=== PATIENT | male | born 1995 | race Caucasian/White ===

== ENCOUNTER → 2016-08-13 | Day surgery (SDC) | payer MEDICAID, SELFPAY ==
[~2016-08-13] MED LIST: Bacitracin Oint 1 GM U/D Packet ONE; Bupivacaine 0.5% 50 ML MDV ONE; Diphtheria,Pertussis(Acell),Tetanus Vaccine 0.5 ML SDV IM ONE; Ketorolac 60 MG/2 ML SDV ONE; Lactated Ringers 1,000 ML ONE; Lidocaine 1% with EPINEPHrine 1:100,000 50 ML MDV INJECT ONE; Lidocaine 1% with EPINEPHrine 1:100,000 50 ML MDV ONE; Midazolam 1 MG/ML 2 ML SDV ONE; Propofol 200 MG/20 ML SDV ONE; Sodium Chloride 0.9% 10 ML Syringe FLUSH PRN; ceFAZolin 2 GM in Premix Bag 1 BAG IV ONE; fentaNYL 100 MCG/2 ML SDV ONE
[2016-08-13 12:26] VITALS: BP 145/70
--- NOTE | 2016-08-13 14:25 | EDM.PDOC ---
ED HPI Skin/Rash - General Chief Complaint: Laceration Stated Complaint: HURT RT ARM/WRIST Time Seen by Provider: 08/13/16 14:10 Source: Reports: Patient History Limitations: Reports: No limitations - History of Present Illness INITIAL COMMENTS - FREE TEXT/NARRATIVE: alert and oriented 21 year old male, states, "I put my arm through a window and pulled out some glass from it". Nas denies uncontrolled bleeding of right forearm laceration. He denies loss of sensation, numbness or tingling. He reports removing two pieces of glass from forearm laceration with small multiple superficial lacerations to the right hand. Last food intake yesterday. Sips of mountain dew today. No past history of anesthesia. Symptom Onset Date: 08/13/16 Symptom Onset Time: 10:30 Timing: Reports: still present Location, Skin: Reports: upper extremity, right Quality: Reports: Ache, Dull Severity: mild Associated symptoms: Reports: denies other symptoms - Related Data Allergies Allergy/AdvReac Type Severity Reaction Status Date / Time *unknown metal Allergy Rash Uncoded 08/13/16 13:03 Home Meds: Ambulatory Orders Medication Instructions Recorded Confirmed NK [No Known Home Meds] 09/14/14 08/13/16 Past Medical History - Past Health History Medical/Surgical History: Denies Medical/Surgical History Cardiovascular History: Reports: None Other Gastrointestinal History: occasional constipation Hematologic History: Reports: None Immunologic History: Reports: None Dermatologic History: Reports: None - Infectious Disease History Infectious Disease History: Reports: None, Chicken pox Social & Family History - Family History Family Medical History: Noncontributory - Tobacco Use Smoking Status *Q: Current Every Day Smoker Years of Tobacco use: 4 Packs/Tins Daily: 0.5 Used Tobacco, but Quit: No Second Hand Smoke Exposure: Yes - Caffeine Use Caffeine Use: Reports: Coffee, Soda - Alcohol Use Days Per Week of Alcohol Use: 0 - Recreational Drug Use Recreational Drug Use: No Recreational Drug Type: Reports: Marijuana/Hashish Recreational Drug Use Frequency: Weekly ED ROS GENERAL - Review of Systems Review Of Systems: See Below Constitutional: Reports: no symptoms Cardiovascular: Reports: No symptoms Endocrine: Reports: no symptoms Musculoskeletal: Reports: no symptoms Skin: Reports: wound Neurological: Reports: No Symptoms Hematologic/Lymphatic: Reports: no symptoms Free text/narrative/comment: Laceration to right forearm ED EXAM, SKIN/RASH Exam: See Below Text/Narrative:: U-shaped laceration to right forearm with flap, 3.5 to 4cm in total length. Bleeding controlled. Multiple small lacerations to right fingers, bleeding controlled. CMS intact, full sensation. Exam Limited By: No limitations General Appearance: alert, WD/WN, no apparent distress Eye Exam: bilateral eye: PERRL Head: atraumatic Neck: normal inspection Respiratory/Chest: no respiratory distress, lungs clear, normal breath sounds, no accessory muscle use, chest non-tender Cardiovascular: normal peripheral pulses, regular rate, rhythm, no edema, no gallop, no murmur, no rub Peripheral Pulses: 2+: brachial (L), brachial (R), radial (L), radial (R) Extremities: normal range of motion, normal capillary refill Neurological: alert, oriented, CN II-XII intact, normal cognition, normal reflexes, no motor/sensory deficits Psychiatric: normal affect, normal mood Skin: Warm, Dry, Wound/incision, Other Location, Skin: upper extremity, right Characteristics: other Comments: U-shaped laceration as described to right forearm, bleeding controlled at this time, foreign bodies noted. Dr. Banegas in to evaluate patient and assume care. Course - Vital Signs Text/Narrative:: X-ray completed, foreign body identified to area of laceration in close proximity to bone. Dr. Banegas notified, images reviewed and patient prepared for removal of foreign bodies to right forearm. NSL inserted, Ancef 2 gram IV Anesthesia in to speak with patient tDap administered. Last Recorded V/S: Last Vital Signs Temp 37.6 C 08/13/16 13:01 Pulse 82 08/13/16 13:01 Resp 16 08/13/16 13:01 BP 145/70 H 08/13/16 13:01 Pulse Ox 95 08/13/16 13:01 - Orders/Labs/Meds Orders: Active Orders 24 hr Category Date Time Status Peripheral IV Care [RC] . DIRECTED Care 08/13/16 14:52 Active Vaccines to be Administered [RC] PER UNIT ROUTINE Care 08/13/16 14:09 Active Fluoro Up To 1Hr [CR] Stat Exams 08/13/16 14:59 Ordered Forearm 2V Rt [CR] Stat Exams 08/13/16 14:18 Taken Sodium Chloride 0.9% [Saline Flush] Med 08/13/16 14:51 Active 10 ml FLUSH ASDIRECTED PRN Peripheral IV Insertion Adult [OM.PC] Routine Oth 08/13/16 14:51 Ordered Medication Orders Sodium Chloride (Saline Flush) 10 ml FLUSH ASDIRECTED PRN PRN Reason: Keep Vein Open Meds: Medications Generic Name Dose Route Start Last Admin Trade Name Freq PRN Reason Stop Dose Admin Sodium Chloride 10 ml 08/13/16 14:51 Saline Flush FLUSH ASDIRECTED PRN Keep Vein Open Discontinued Medications Generic Name Dose Route Start Last Admin Trade Name Freq PRN Reason Stop Dose Admin Bupivacaine HCl Confirm 08/13/16 15:10 Marcaine 0.5% Administered 08/13/16 15:11 Dose 50 ml .ROUTE .STK-MED ONE Diphtheria/Tetanus/Acell Pertussis 0.5 ml 08/13/16 14:09 08/13/16 14:40 Adacel IM 08/13/16 14:10 0.5 ml .ONCE ONE Administration Fentanyl Confirm 08/13/16 14:50 Sublimaze Administered 08/13/16 14:51 Dose 100 mcg .ROUTE .STK-MED ONE Cefazolin Sodium/Dextrose 2 gm 50 mls @ 100 mls/hr 08/13/16 14:50 08/13/16 15 :08 / Premix IV 08/13/16 15:19 100 mls/hr ONETIME ONE Administration Lidocaine/Epinephrine 20 ml 08/13/16 14:20 Xylocaine 1% With Epinephrine 1:100,000 INJECT 08/13/16 14:21 NOW ONE Lidocaine/Epinephrine Confirm 08/13/16 15:10 Xylocaine 1% With Epinephrine 1:100,000 Administered 08/13/16 15:11 Dose 50 ml .ROUTE .STK-MED ONE Midazolam HCl Confirm 08/13/16 14:50 Versed 1 Mg/Ml Administered 08/13/16 14:51 Dose 2 mg .ROUTE .STK-MED ONE Propofol Confirm 08/13/16 14:50 Diprivan 20 Ml Administered 08/13/16 14:51 Dose 200 mg .ROUTE .STK-MED ONE Departure - Departure Time of Disposition: 15:15 (To OR for removal of foreign body ) Disposition: Admitted As Inpatient 67 Condition: good Clinical Impression: Foreign body - My Orders Last 24 Hours: My Active Orders 08/13/16 14:09 Vaccines to be Administered [RC] PER UNIT ROUTINE 08/13/16 14:18 Forearm 2V Rt [CR] Stat 08/13/16 14:51 Sodium Chloride 0.9% [Saline Flush] 10 ml FLUSH ASDIRECTED PRN Peripheral IV Insertion Adult [OM.PC] Routine 08/13/16 14:52 Peripheral IV Care [RC] . DIRECTED - Assessment/Plan Last 24 Hours: My Active Orders 08/13/16 14:09 Vaccines to be Administered [RC] PER UNIT ROUTINE 08/13/16 14:18 Forearm 2V Rt [CR] Stat 08/13/16 14:51 Sodium Chloride 0.9% [Saline Flush] 10 ml FLUSH ASDIRECTED PRN Peripheral IV Insertion Adult [OM.PC] Routine 08/13/16 14:52 Peripheral IV Care [RC] . DIRECTED
--- NOTE | 2016-08-13 20:46 | CONS ---
DATE OF SERVICE: 08/13/2016 REFERRING PHYSICIAN: Albert Napoles MD CONSULTING PHYSICIAN: Tomas Banegas MD REASON FOR CONSULTATION: Evaluation of right arm. HISTORY OF PRESENT ILLNESS: A 21-year-old male, who punched through a glass window in the last couple hours. He presents with pain in his right arm, consistent with punching through. This is obviously a new problem for him. He is not up-to-date on his tetanus shot. PAST MEDICAL HISTORY: None. PAST SURGICAL HISTORY: None. SOCIAL HISTORY: Does smoke. FAMILY HISTORY: Noncontributory. REVIEW OF SYSTEMS: GENERAL: The patient is appropriate for his condition. HEENT: No symptoms. NECK: No symptoms. CARDIOVASCULAR: No history of myocardial infarction. RESPIRATORY: No history of asthma or shortness of breath. GASTROINTESTINAL: No symptoms. GENITOURINARY: No symptoms. NEUROLOGICAL: No symptoms. The remainder review of systems reviewed and is negative. PHYSICAL EXAMINATION: VITAL SIGNS: Stable. HEENT: Pupils equal, round, and reactive to light. NECK: Supple, and nontender. CARDIOVASCULAR: Regular rhythm and rate. RESPIRATORY: Lungs clear to consultation bilaterally. ABDOMEN: Bowel sounds positive. EXTREMITIES: Laceration, right arm, consistent with the history of present illness. NEUROLOGICAL: Alert and oriented x3. PSYCH: No gross depression. IMAGING DATA: I did review multiple glass fragments in the right forearm. ASSESSMENT: Glass fragments, right forearm. PLAN: The patient will have to be taken to the operating room to remove these multiple fragments. This will be intraoperative with MAC anesthesia using fluoroscopy. Risks, benefits, alternatives, and limitations, including, but not limited to infection, bleeding, nerve, musculoskeletal injury and other risks listed here were explained to the patient and his family and they understand and wished to proceed. Tomas Banegas MD /[id number]
--- NOTE | 2016-08-15 07:18 | OR ---
DATE OF PROCEDURE: 08/13/2016 PROCEDURE: 1. Exploration of traumatic laceration and removal of foreign body, right arm (). 2. Repair of complex flap laceration, full thickness including the muscle down to the ulnar bone ([id number]), total length of lacerations 7.2 cm (2 separate lacerations in proximity to each other, essentially forming a V pattern). COMPLICATIONS: None. 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 ANESTHESIA: MAC/local. INDICATIONS: A 21-year-old male, reportedly had a penetrating wound of his right arm. It was reported was glass and/or metal, but most consistent story with glass penetration. RISKS: Risks, benefits, alternatives, and limitations, including, but not limited to infection, bleeding, injury to structures such as nerves and arteries, which can result in deformities of the ulnar or median nerve, anatomical and sensory distribution. The patient understands these risks and wished to proceed. PROCEDURE IN DETAIL: The patient was placed in supine position. The right arm was prepped and draped. The wound was explored. This was noted to be full thickness and the laceration of the muscle had occurred down to the bone itself. This was thoroughly irrigated initially and then multiple times. Also prior to this initial exploration lidocaine mixed with epinephrine was used to anesthetize the skin. Over the next 20 minutes using intraoperative fluoroscopy, foreign material was removed. It was consistent with glass. This was a total of 8 pieces. No other pieces were noted after removal of these. The wound itself was noted to be as described before full-thickness laceration down to bone. It did not appear to injury or it did not show any evidence of tissue ischemia. The superior laceration was repaired first. The muscle bed was approximated again with 3-0 Vicryl over the bone itself. Of note, a piece of iodoform gauze was placed within this. After this, approximation with 3 layers of 3-0 Vicryl, a layer of 3-0 running Prolene was used to close the skin. The more distal laceration was then addressed next. This was also noted to be full thickness and was again thoroughly irrigated. The wound was again irrigated and then closed also in 3 layers of 3-0 Vicryl interrupted sutures with interrupted/running 3-0 Prolene for the skin. More local was applied. Dressings were applied. The patient tolerated the procedure well. Tomas Banegas MD /[id number]
--- NOTE | 2016-08-15 09:59 | CR ---
Multiple foreign bodies which are in the medial, anterior soft tissues of the distal forearm. No fra cture.
== END ==
LOC: JP.ED 12:13 → JP.SDS 15:21
PROVIDERS: ATTEND Surgery
DX: S51.821A Laceration with foreign body of right forearm, initial encounter (principal); W25.XXXA Contact with sharp glass, initial encounter; W45.8XXA Other foreign body or object entering through skin, initial encounter; W22.8XXA Striking against or struck by other objects, initial encounter; F17.200 Nicotine dependence, unspecified, uncomplicated; Z23 Encounter for immunization
CPT/HCPCS: 12032; 73090; 76000; 90471; 90715; 96365; 99284; J0690; J1885; J2250; J2704; J3010; J7120

== ENCOUNTER 2016-10-29 10:40 | Emergency (ER) | payer MEDICAID ==
[2016-10-29 11:05] VITALS: BP 137/77
[2016-10-29] MEDS ORDERED: Acetaminophen/HYDROcodone 325-5 MG Tab PO ONE (11:17)
--- NOTE | 2016-10-29 11:21 | EDM.PDOC ---
ED HPI GENERAL MEDICAL PROBLEM - General Chief Complaint: Lower Extremity Injury/Pain Stated Complaint: HURT LT ANKLE/FOOT Time Seen by Provider: 10/29/16 11:15 Source of Information: Reports: Patient History Limitations: Reports: No Limitations - History of Present Illness INITIAL COMMENTS - FREE TEXT/NARRATIVE: Nas is an otherwise healthy 21 year old male who presents to the ED today with his friend for evaluation of left ankle and foot pain after twisting both in soft sand while doing wheelie on his 4 hunt last night. Taking Ibuprofen and Tylenol for pain with minimal relief, pain with weight bearing. Denies any other injuries. - Related Data Allergies Allergy/AdvReac Type Severity Reaction Status Date / Time *unknown metal Allergy Rash Uncoded 08/13/16 13:03 Home Meds: Home Meds NK [No Known Home Meds] 09/14/14 [History] Past Medical History - Past Health History Medical/Surgical History: Denies Medical/Surgical History Cardiovascular History: Reports: None Other Gastrointestinal History: occasional constipation Hematologic History: Reports: None Immunologic History: Reports: None Dermatologic History: Reports: None - Infectious Disease History Infectious Disease History: Reports: None, Chicken Pox Social & Family History - Family History Family Medical History: Noncontributory - Tobacco Use Smoking Status *Q: Current Every Day Smoker Years of Tobacco use: 6 Packs/Tins Daily: 1 Used Tobacco, but Quit: No Second Hand Smoke Exposure: Yes - Caffeine Use Caffeine Use: Reports: Coffee, Soda - Alcohol Use Days Per Week of Alcohol Use: 0 - Recreational Drug Use Recreational Drug Use: No Recreational Drug Type: Reports: Marijuana/Hashish Recreational Drug Use Frequency: Weekly Review of Systems - Review of Systems Review Of Systems: ROS reveals no pertinent complaints other than HPI. ED EXAM, GENERAL - Physical Exam Exam: See Below Exam Limited By: No Limitations General Appearance: Alert, WD/WN, No Apparent Distress Respiratory/Chest: No Respiratory Distress Cardiovascular: Regular Rate, Rhythm Back Exam: Normal Inspection Extremities: Other (left ankle and foot swollen, distal dorsal swelling along 3- 5 metatarsal region. Pedal pulses intact, sensation intact, tender to touch. Capillary refill intact) Neurological: Alert, Oriented, CN II-XII Intact Psychiatric: Normal Affect, Normal Mood Skin Exam: Warm, Dry, Intact, Other (abrasion to left medial malleolar region) Lymphatic: No Adenopathy Course - Vital Signs Text/Narrative:: Nas is an otherwise healthy 21 year old male who present to the ED today with c/o left foot/ankle swelling and pain. Please refer to HPI and focused exam. Concern for sprain/contusion/fracture. X-rays obtained, findings appear to be old ? lucency in distal fibula. Subtle area of density in navicular bone that does not cross border. I did ask radiology to read both films (patient does reports hold ankle injury), radiology read read ankle as negative, possible navicular fracture. Discussed findings with patient, he was placed in gerson wrap and boot. Crutch teaching for non-weight bearing. Ibuprofen, rest, ice, elevate. Oxycodone for severe pain (no opioid abuse on [place] [employer]). Request made for f/u with Dr. Chase orthopedics in one week. Patient did mention hives after taking tylenol last night, will avoid this for now. Last Recorded V/S: Last Vital Signs Temp 36.8 C 10/29/16 11:13 Pulse 100 10/29/16 11:13 Resp 14 10/29/16 11:13 BP 137/77 10/29/16 11:13 Pulse Ox 94 L 10/29/16 11:13 - Orders/Labs/Meds Orders: Active Orders 24 hr Category Date Time Status Ankle Min 3V Lt [CR] Stat Exams 10/29/16 11:18 Taken Foot Comp Min 3V Lt [CR] Stat Exams 10/29/16 11:17 Taken Meds: Medications Discontinued Medications Generic Name Dose Route Start Last Admin Trade Name Freq PRN Reason Stop Dose Admin Hydrocodone Bitart/Acetaminophen 2 tab 10/29/16 11:17 [place] 325-5 Mg PO 10/29/16 11:18 ONETIME ONE Oxycodone HCl 10 mg 10/29/16 11:35 10/29/16 11:43 Oxycodone PO 10/29/16 11:36 10 mg ONETIME ONE Administration Departure - Departure Time of Disposition: 12:45 Disposition: Home, Self-Care 01 Condition: Good Clinical Impression: Navicular fracture, foot Qualifiers: Encounter type: initial encounter Fracture type: closed Fracture alignment: nondisplaced Laterality: left Qualified Code(s): S92.255A - Nondisplaced fracture of navicular [scaphoid] of left foot, initial encounter for closed fracture - Discharge Information Instructions: Tarsal Navicular Fracture, Crutch Use, [id number] Referrals: PCP,None [Primary Care Provider] - Forms: ED Department Discharge Additional Instructions: Keep foot elevated, ice with boot off frequently. Ibuprofen 600 mg every 6 hours. Oxycodone for severe pain Use crutches for non-weight bearing Dr. [facility] clinic will call to schedule follow up appt. - My Orders Last 24 Hours: My Active Orders 10/29/16 11:17 Foot Comp Min 3V Lt [CR] Stat 10/29/16 11:18 Ankle Min 3V Lt [CR] Stat - Assessment/Plan Last 24 Hours: My Active Orders 10/29/16 11:17 Foot Comp Min 3V Lt [CR] Stat 10/29/16 11:18 Ankle Min 3V Lt [CR] Stat
[2016-10-29] MEDS ORDERED: oxyCODONE 5 MG Tab PO ONE (11:35)
== END 2016-10-29 12:39 | disposition home or self-care (01) ==
LOC: JP.ED 10:40
DX: S92.255A Nondisplaced fracture of navicular [scaphoid] of left foot, initial encounter for closed fracture (principal); F17.210 Nicotine dependence, cigarettes, uncomplicated; W18.40XA Slipping, tripping and stumbling without falling, unspecified, initial encounter
CPT/HCPCS: 73610; 73630; 99284; A9270

== ENCOUNTER 2018-06-20 12:43 | Emergency (ER) | payer MEDICAID ==
[2018-06-20 13:06] VITALS: BP 154/86
[2018-06-20] MEDS ORDERED: Albuterol/Ipratropium 3.0-0.5 MG/3 ML Neb Soln NEB ONE (13:11)
--- NOTE | 2018-06-20 13:16 | EDM.PDOC ---
ED HPI GENERAL MEDICAL PROBLEM - General Chief Complaint: Respiratory Problem Stated Complaint: COUGH,CHEST DISCOMFORT,SOB Time Seen by Provider: 06/20/18 13:00 Source of Information: Reports: Patient History Limitations: Reports: No Limitations - History of Present Illness INITIAL COMMENTS - FREE TEXT/NARRATIVE: 23-year-old male with a cough for the last 2 days, pain with breathing and today feels very short of breath with a persistent pressure in the center of his chest. No fever or chills. He does not believe he has asthma. No abdominal pain, sore throat and ear pain or rhinitis. Onset: Gradual Duration: Day(s): (2-3 days) Improves with: Reports: None Worsens with: Reports: Breathing, Other (Coughing is painful) Associated Symptoms: Reports: Chest Pain, Cough, Shortness of Breath. Denies: Fever/Chills, Loss of Appetite, Nausea/Vomiting Chest Pain Score (Numeric/FACES): 5 - Related Data Allergies Allergy/AdvReac Type Severity Reaction Status Date / Time ibuprofen Allergy Hives Verified 06/20/18 13:00 *unknown metal Allergy Rash Uncoded 08/13/16 13:03 Home Meds: Home Meds NK [No Known Home Meds] 09/14/14 [History] Past Medical History - Past Health History Medical/Surgical History: Denies Medical/Surgical History Cardiovascular History: Reports: None Other Gastrointestinal History: occasional constipation Hematologic History: Reports: None Immunologic History: Reports: None Dermatologic History: Reports: None - Infectious Disease History Infectious Disease History: Reports: None, Chicken Pox - Past Surgical History Musculoskeletal Surgical History: Reports: Other (See Below) Other Musculoskeletal Surgeries/Procedures:: surgery on arm for glass removal. Social & Family History - Family History Family Medical History: Noncontributory - Tobacco Use Smoking Status *Q: Light Tobacco Smoker Years of Tobacco use: 5 Packs/Tins Daily: 0.3 - Caffeine Use Caffeine Use: Reports: Coffee, Soda - Recreational Drug Use Recreational Drug Use: No ED ROS GENERAL - Review of Systems Review Of Systems: See Below Constitutional: Denies: Fever, Chills, Decreased Appetite HEENT: Denies: Ear Pain, Rhinitis, Throat Pain Respiratory: Reports: Shortness of Breath, Pleuritic Chest Pain, Cough GI/Abdominal: Denies: Abdominal Pain, Nausea, Vomiting Musculoskeletal: Reports: No Symptoms Skin: Reports: No Symptoms Neurological: Reports: No Symptoms. Denies: Headache ED EXAM, GENERAL - Physical Exam Exam: See Below Exam Limited By: No Limitations General Appearance: Alert, No Apparent Distress Throat/Mouth: Normal Inspection Head: Atraumatic Respiratory/Chest: No Respiratory Distress, Wheezing (Patient does have scattered expiratory wheezes) Cardiovascular: Regular Rate, Rhythm Neurological: Alert, Oriented Psychiatric: Normal Affect, Normal Mood Skin Exam: Warm, Dry Course - Vital Signs Last Recorded V/S: Last Vital Signs Temp 97.0 F 06/20/18 13:07 Pulse 107 H 06/20/18 13:07 Resp 16 06/20/18 13:07 BP 154/86 H 06/20/18 13:07 Pulse Ox 95 06/20/18 13:07 - Orders/Labs/Meds Orders: Active Orders 24 hr Category Date Time Status RT Aerosol Therapy [RC] ASDIRECTED Care 06/20/18 13:11 Active Meds: Medications Discontinued Medications Generic Name Dose Route Start Last Admin Trade Name Aracely PRN Reason Stop Dose Admin Albuterol/Ipratropium 3 ml 06/20/18 13:11 06/20/18 13:18 Duoneb 3.0-0.5 Mg/3 Ml NEB 06/20/18 13:12 3 ml ONETIME ONE Administration - Re-Assessments/Exams Free Text/Narrative Re-Assessment/Exam: 06/20/18 13:16 Patient was given a DuoNeb, followed by a two-view chest x-ray. 06/20/18 13:42 DuoNeb helped, two-view chest x-ray was normal. He'll be discharged with an albuterol inhaler that he continues to puffs every 3 hours for tightness, this is likely viral and should resolve and he can recheck if worsening. A note for work was given at the patient's request. Departure - Departure Time of Disposition: 14:37 Disposition: Home, Self-Care 01 Condition: Good Clinical Impression: Viral bronchitis Reactive airway disease Qualifiers: Asthma severity: mild Asthma persistence: intermittent Asthma complication type : uncomplicated Qualified Code(s): J45.20 - Mild intermittent asthma, uncomplicated - Discharge Information Instructions: Bronchospasm, Adult, [id number] Referrals: PCP,None [Primary Care Provider] - Forms: ED Department Discharge Care Plan Goals: Use inhaler 2 puffs every 3 hours as needed for wheezing or chest tightness. Return anytime if worsening or concerns, consider rechecking in 2-3 days if not improving with inhaler. - My Orders Last 24 Hours: My Active Orders 06/20/18 13:11 RT Aerosol Therapy [RC] ASDIRECTED - Assessment/Plan Last 24 Hours: My Active Orders 06/20/18 13:11 RT Aerosol Therapy [RC] ASDIRECTED
--- NOTE | 2018-06-20 13:40 | CRLCR ---
CHEST 2 VIEWS INDICATION: Dyspnea IMPRESSION: Normal heart size and vascular pattern. Lungs are clear. No pneumothorax or pleural effusion. Dictated by Ethan Downs MD @ Jun 20 2018 1:37PM Signed by Dr. Ethan Downs @ Jun 20 2018 1:38PM
== END 2018-06-20 14:37 | disposition home or self-care (01) ==
LOC: JP.ED 12:43
DX: J20.8 Acute bronchitis due to other specified organisms (principal); J45.20 Mild intermittent asthma, uncomplicated; B97.89 Other viral agents as the cause of diseases classified elsewhere; F17.210 Nicotine dependence, cigarettes, uncomplicated; Z88.6 Allergy status to analgesic agent
CPT/HCPCS: 71046; 94640; 99284-25; J7620-GY